=== PATIENT | male | born 1990 | race Caucasian/White ===

== ENCOUNTER 2020-03-28 17:31 | Outpatient (CLI) | payer OTHER ==
--- NOTE | 2020-03-28 13:53 | SLEEP CARE CONSULTATION ---
History of Present Illness Service Date and Time: 03/28/2020 1320 Reason for Visit: New patient Chief Complaint: reports: Snoring, Observed pauses in breathing Additional HPI information: I had the pleasure of seeing Mr. Carter today regarding the possibility of him having a sleep disorder. As you know, he is a 29-year-old gentleman who complains of waking exhausted. His fiance tells him that he snores loudly and stops breathing. The patient tells me that he normally goes to bed around 11 pm - midnight, and it takes him approximately 30 minutes to fall asleep. His bed partner has to sleep in a separate room. He can recall waking up on the average of 2 - 4 times during the night. Most of the time he wakes up because of his own snoring, choking, and having to gasp for air. There is a lot of tossing and turning in his sleep. He has somniloquy (sleep talking) but no somnambulism (sleep walking). Generally there is no recollection of dreams. In the morning he usually gets up out of the bed around 9 - 10 a.m. not feeling refreshed nor rested. He occasionally has a morning headache that goes away quickly. During the day he complains of feeling sleepy and fatigued. He has never fallen asleep while driving nor has had any accident due to sleepiness. He usually does not take naps during the day. Upon falling asleep during the day he denies having vivid dreams. He has never had sleep paralysis, experienced cataplexy or symptoms of restless leg syndrome. He reports having impaired concentration during the day. 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 He is engaged and lives in [place]. He does not smoke cigarettes. He does not drink alcohol drinks alcohol on the average of 1 2 drinks every few days. He drinks 2 cup of coffee a day. Family History: His father has obstructive sleep apnea-hypopnea and use a CPAP. Review of system: The patient has not lost or gained significant amount of weight in the past few years. The patient denies having had heart trouble such as congestive heart failure, coronary artery disease, or arrhythmia. No respiratory problems such as dyspnea, cough, wheeze or history of asthma. There is no heartburn, hoarseness or dysphagia. No histories of stroke, seizure, head trauma, anxiety, or depression. He never had surgery or injury to his nose, mouth or throat. He reports frequent nasal congestion. No hypothyroidism, insulin resistance or diabetes mellitus. No hypertension or leg edema. 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 Patient is and lives in . Physical Exam Vital signs obtained and entered by: N/A Height: 5 ft 4 in Weight: 160 lb Body Mass Index: 27.4 BMI Classification: Overweight Impression and Plan IMPRESSION: 1. Obstructive Sleep Apnea-Hypopnea Syndrome, as suggested by history of loud and irregular snoring, observed cessation of breath while asleep, unrefreshed sleep, morning headache, cognitive impairment, and and daytime hypersomnolence. Narrow oropharynx and obesity are common predisposing factors for obstructive sleep apnea-hypopnea syndrome. Pathophysiology of sleep-disordered breathing was discussed. I recommend proceeding to polysomnography to confirm the d iagnosis and to assess severity. If he has significant sleep disordered breathing, a manual CPAP titration study will also be performed to find the optimal treatment pressure. I informed the patient of what the sleep studies involve and after some discussion, he agreed to proceed. Plan: 1. Schedule polysomnography + manual CPAP titration study 2. Avoid long distance driving or when feeling sleepy. 3. Avoid alcohol, sedative and muscle relaxant around bedtime. 4. Attempt to lose weight. 5. Return in 1 to 2 weeks after the study to discuss results and initiate therapy. Video Type: Doximity Patient Location: Home Location of Provider: Home Patient agrees and consents to this telehealth visit type: Yes Patient agrees to have their insurance billed: Yes Time Spent with Patient (minutes): 15
== END 2020-03-28 17:32 | disposition home or self-care (01) ==
LOC: SC 17:31
PROVIDERS: ATTEND Internal Medicine Pulmonary Disease
DX: R06.83 Snoring (principal); R06.81 Apnea, not elsewhere classified; G47.8 Other sleep disorders; R51.9 Headache, unspecified; R41.89 Other symptoms and signs involving cognitive functions and awareness; G47.10 Hypersomnia, unspecified; E66.3 Overweight; Z68.27 Body mass index [BMI] 27.0-27.9, adult

== ENCOUNTER 2020-04-27 13:59 | Outpatient (CLI) | payer OTHER | END 2020-04-27 14:00 | disposition home or self-care (01) | LOC: SC 13:59 | PROVIDERS: ATTEND Internal Medicine Pulmonary Disease | DX: R09.02 Hypoxemia (principal) | CPT/HCPCS: 95806 ==

== ENCOUNTER 2020-05-17 11:39 | Outpatient (CLI) | payer OTHER ==
--- NOTE | 2020-05-17 12:06 | SLEEP CARE CONSULTATION ---
Information from patient questionnaire entered by Nany Klein. I have reviewed and concur with the information entered by Nany Klein. This document represents the service I personally performed and the decisions made by , Kelsie Urbano ARNP. History of Present Illness Service Date and Time: 05/17/2020 1139 Current [place] Sleepiness Scale score: 17 Additional HPI information: AURELIA GAINES returns for follow up and results of the recently performed home sleep study. The patient was informed of the following findings: Patient has no significant sleep disordered breathing with an average AHI of 2.2. He did have moderate hypoxia with a ramses oxygen saturation of 78% and 34.2 minutes of oxygen under 90%. I explained the pathophysiology behind obstructive sleep apnea. Patient does not have sleep apnea and was advised how weight gain could increase the risk of developing sleep apnea in the future. I strongly encouraged the patient to lose weight. Patient has moderate snoring. Snoring can be reduced by weight loss. Weight loss is best achieved with diet consult. Patient instructed to contact PCP for referral. Snoring can also be treated with an oral appliance from a dentist. Advised to check insurance coverage. In addition, an ENT evaluation can be do to see if other treatment is indicated. Patient counseled not drink alcohol less than 4 hours before bedtime as it can increase snoring and apnea. Patient was cautioned about risks of drowsy driving until sleepiness symptoms resolve. Sleep Study - Results Type of Sleep Study: Home sleep study Prior sleep studies: No Polysomnography/Home Sleep Study results: Physician Impression: The quality of the study is good. The length of the study is adequate (> 240 minutes). Please also see the tabulated and graphic data. 1. No significant sleep-disordered breathing, with an AHI of 2.2/hr and ramses SaO2 of 78%. During the study, the patient had 9 apneas (9 obstructive, 0 central, 0 mixed) and 9 hypopneas. The longest episode lasted 39.0 seconds. The few respiratory events occurred independently of sleep stage and body position (supine AHI was 2.1 and non-supine, 2.29). 2. Hypoxemia (ICD-10 R09.02), moderate, with the lowest oxygen saturation of 78 % and 34.2 minutes with SaO2 under 90%. Baseline oxygen saturation was normal (Average oxygen saturation was 94%). Allergies and Home Medications Drug allergies reviewed: Yes (NKDA) Home medication list reviewed: Yes (no changes) Review of Systems Review of systems same as previous: Yes (no changes) Physical Exam Heart Rate: 64 O2 Saturation: 98 Height: 5 ft 4 in Weight: 161 lb Body Mass Index: 27.6 BMI Classification: Overweight Impression and Plan 1. Snoring but no significant sleep disordered breathing. Patient advised that often weight loss will reduce snoring as well as apnea risk. An oral appliance can also be used for snoring. This would require a dental consultation. Patient cautioned not to use other online appliances as can cause bite issues. A list of accredited dentists in area and one local dentist who makes oral appliances given. Patient is advised to check if insurance will cover. An ENT consult can also be helpful to determine if any other treatment is an option. 2. Hypoxemia, moderate. He had a ramses oxygen saturation of 78% with a total of 34.2 minutes with oxygen levels under 90% during the study. His baseline oxygen saturation was 94%. * Attempt to lose weight * Avoid alcohol consumption near bedtime * The patient is cautioned about driving until sleepiness is completely resolved. * Return as needed. Counseling Topics: Weight loss health impact Visit Type: In Office Time Spent with Patient (minutes): 15 Provider Statement: I spent 100% of the Face to Face Visit with the patient with greater than 50% spent counseling the patient and coordination of care.
== END 2020-05-17 11:40 | disposition home or self-care (01) ==
LOC: SC 11:39
PROVIDERS: ATTEND Nurse Practitioner Family
DX: R06.83 Snoring (principal); E66.3 Overweight; Z68.27 Body mass index [BMI] 27.0-27.9, adult
CPT/HCPCS: 99212